=== PATIENT | female | born 1985 | race Caucasian/White ===

== ENCOUNTER → 2016-12-17 | Outpatient (REF) | payer BC | LOC: M LAB REF 17:53 | PROVIDERS: ATTEND Physician Assistant Medical | DX: J02.9 Acute pharyngitis, unspecified (principal) ==

== ENCOUNTER → 2018-03-30 | Outpatient (REF) | payer BC | LOC: M LAB REF 12:17 | DX: R30.0 Dysuria (principal); J02.9 Acute pharyngitis, unspecified | CPT/HCPCS: 87086 ==

== ENCOUNTER 2018-10-12 13:05 | Day surgery (SDC) | payer BC ==
[2018-10-12] MEDS: LR 1,000 ML IV (13:35)
[2018-10-12 13:46] LABS: CONTROL LINE UCG INT CTR LINE PRESENT; URINE PREG TEST NEGATIVE (NEGATIVE)
[2018-10-12] MEDS ORDERED: fentaNYL 250 MCG/5 ML INJECTION (J3010) As Ordered (14:25)
[2018-10-12] MEDS ORDERED: MIDAZOLAM INJ 2 MG/2 ML VIAL (J2250) As Ordered ×2 (14:25→15:23)
[2018-10-12] MEDS ORDERED: LIDOCAINE 2% INJ 100 MG/5 ML SDV (FOR ANES.) As Ordered (14:25)
[2018-10-12] MEDS ORDERED: PROPOFOL 200 MG/20 ML VIAL As Ordered (14:25)
[2018-10-12] MEDS ORDERED: fentaNYL 100 MCG/2 ML INJECTION (J3010) As Ordered ×2 (15:23→17:46)
[2018-10-12] MEDS ORDERED: SCOPOLAMINE 1MG TRANSDERMAL PATCH As Ordered (15:31)
[2018-10-12] MEDS: fentaNYL 100 MCG/2 ML INJECTION (J3010) IV ×2 (15:41→15:43)
[2018-10-12] MEDS: MIDAZOLAM INJ 2 MG/2 ML VIAL (J2250) IV ×3 (15:41→16:08)
[2018-10-12] MEDS ORDERED: SCOPOLAMINE 1MG TRANSDERMAL PATCH TOP (16:00)
[2018-10-12] MEDS ORDERED: ROCURONIUM BROMIDE 50 MG/5 ML VIAL As Ordered (16:18)
[2018-10-12] MEDS ORDERED: KETOROLAC 60 MG/2 ML VIAL (J1885) As Ordered (16:55)
[2018-10-12] MEDS ORDERED: dexameTHASONE 4 MG/ML 1ML VIAL (J1100) As Ordered ×2 (16:56)
[2018-10-12] MEDS ORDERED: ONDANSETRON 4MG/2ML VIAL (J2405) As Ordered (16:56)
[2018-10-12] MEDS ORDERED: METOCLOPRAMIDE INJ 10MG/2ML VIAL (J2765) As Ordered (16:56)
[2018-10-12] MEDS: ceFAZolin 1GM INJ (J0690 PER 500MG) As Ordered (17:01)
[2018-10-12] MEDS: ROPIvacaine 0.5% 30 ML INJECTION (J2795 PER 1MG) As Ordered (18:00)
[2018-10-12] MEDS ORDERED: METOCLOPRAMIDE INJ 10MG/2ML VIAL (J2765) IV (18:45)
[2018-10-12] MEDS ORDERED: ONDANSETRON 4MG/2ML VIAL (J2405) IV (18:45)
[2018-10-12] MEDS ORDERED: MEPERIDINE INJ 25 MG/ML VIAL (J2175) IV (18:45)
[2018-10-12] MEDS ORDERED: LR 1,000 ML IV ×2 (18:45→19:00)
[2018-10-12] MEDS ORDERED: fentaNYL 100 MCG/2 ML INJECTION (J3010) IV (18:45)
[2018-10-12] MEDS ORDERED: PERCOCET 5MG/325MG TAB PO (18:45)
[2018-10-12] MEDS ORDERED: MORPHINE 4 MG/ML 1ML VIAL/SYRINGE (J2270) IV (19:00)
[2018-10-12] MEDS ORDERED: NORCO, ANEXSIA 5/325MG TABLET (HYDROcodone/ACETAMINOPHEN) PO ×2 (19:00)
[2018-10-13] MEDS ORDERED: ASPIRIN 325 MG TAB PO (09:00)
== END 2018-10-12 20:40 | disposition home or self-care (01) ==
LOC: M SDC 13:05
DX: M25.362 Other instability, left knee (principal); T84.410A Breakdown (mechanical) of muscle and tendon graft, initial encounter; Z79.899 Other long term (current) drug therapy
CPT/HCPCS: 29881

== ENCOUNTER → 2019-03-10 | Outpatient (REF) | payer BC ==
[~2019-03-10] MED LIST: PREVTAB2; birth control
== END ==
LOC: M LAB REF 19:11
PROVIDERS: ATTEND Physician Assistant Medical
DX: J02.9 Acute pharyngitis, unspecified (principal)

== ENCOUNTER → 2019-07-09 | Outpatient (REF) | payer BC | LOC: M LAB REF 09:37 | PROVIDERS: ATTEND Physician Assistant Medical | DX: J02.9 Acute pharyngitis, unspecified (principal) ==